=== PATIENT | female | born 1965 | race Caucasian/White ===

== ENCOUNTER 2024-07-17 10:43 | Day surgery (SDC) | payer BC ==
[2024-07-16 12:11] VITALS: BMI 25.0
[2024-07-17] MEDS ORDERED: Acetaminophen 500 MG TAB ONE (11:12)
[2024-07-17] MEDS ORDERED: Ketorolac Tromethamine 30 MG (1 mL) VIAL ONE ×2 (11:12→15:10)
[2024-07-17] MEDS ORDERED: Indocyanine Green 25 MG/10 ML VIAL ONE (13:17)
[2024-07-17] MEDS ORDERED: CEFAZOLIN 2 GM VIAL ONE (13:17)
[2024-07-17] MEDS ORDERED: Bupivacaine/Epinephrine 0.25% 30 ML VIAL ONE (13:17)
[2024-07-17] MEDS ORDERED: Fentanyl 100 MCG/2 ML VIAL ONE ×2 (13:57→15:49)
[2024-07-17] MEDS ORDERED: Lidocaine 2% PF 5 ML VIAL ONE ×2 (13:57→15:10)
[2024-07-17] MEDS ORDERED: Lidocaine 4% PF 5 ML AMP ONE (13:57)
[2024-07-17] MEDS ORDERED: PROPOFOL 20 ML ONE (13:57)
[2024-07-17] MEDS ORDERED: Dexamethasone 20 MG/5 ML VIAL ONE (14:32)
[2024-07-17] MEDS ORDERED: Ondansetron PF 4 MG/2 ML Vial ONE (14:32)
[2024-07-17] MEDS ORDERED: ePHEDrine Sulfate 50 MG/10 ML VIAL ONE (14:36)
[2024-07-17] MEDS ORDERED: SUGAMMADEX SODIUM 200 MG/2 ML VIAL ONE (15:09)
[2024-07-17] MEDS ORDERED: traMADol HCl 50 MG TAB ONE (16:13)
== END 2024-07-17 16:45 | disposition home or self-care (01) ==
LOC: CSHSDC 10:43
PROVIDERS: ATTEND Specialist
PROC: 0FT44ZZ Resection of Gallbladder, Percutaneous Endoscopic Approach (ICD-10-PCS; principal; 2024-07-17)
DX: K80.10 Calculus of gallbladder with chronic cholecystitis without obstruction (principal); K21.9 Gastro-esophageal reflux disease without esophagitis; G43.909 Migraine, unspecified, not intractable, without status migrainosus; J44.9 Chronic obstructive pulmonary disease, unspecified; F17.200 Nicotine dependence, unspecified, uncomplicated; Z90.710 Acquired absence of both cervix and uterus; Z90.89 Acquired absence of other organs; Z88.5 Allergy status to narcotic agent; Z88.8 Allergy status to other drugs, medicaments and biological substances; Z79.899 Other long term (current) drug therapy
CPT/HCPCS: 88304; C1889; J1100; J1885; J2405; J2704; J3010; S2900